=== PATIENT | male | born 1945 | race Caucasian/White ===

== ENCOUNTER 2018-11-13 12:01 | Day surgery (SDC) | payer MEDICARE, BC ==
[2018-11-13] MEDS ORDERED: LIDOCAINE 2% MDV (20MG/ML) 20ML VIAL IV ONE (12:02)
[2018-11-13] MEDS ORDERED: PROPOFOL 10 MG/ML VIAL IV ONE (12:02)
--- NOTE | 2018-11-14 10:00 | Operative Note ---
DATE OF SURGERY: 11/13/2018 OPERATION: COLONOSCOPY with cold snare polypectomy x4. PREOPERATIVE DIAGNOSIS: Colon cancer screening, average risk. POSTOPERATIVE DIAGNOSIS: Redundant colon and polyps. ESTIMATED BLOOD LOSS: Minimum. SPECIMENS: Ascending colon polyps and transverse colon polyps. COMPLICATIONS: None apparent. PREPARATION QUALITY: Good. PROCEDURE: After informed consent was obtained from the patient, he was placed in the left lateral decubitus position in the endoscopy suite, sedated and monitored by the department of anesthesia. Digital rectal exam was unremarkable. A well-lubricated [id number] colonoscope was inserted into the rectum and advanced to the ascending colon. There was 1 sessile polyp approximately 4 mm in diameter removed with a cold snare. Unfortunately, I could not advance the pediatric scope to the cecum despite transabdominal pressure. It was felt the patient's body habitus and colonic redundancy prevented advance to the cecum. As a result, the pediatric colonoscope was removed and a [id number] adult colonoscope inserted into the rectum and advanced to the cecum. Transabdominal pressure was required to intubate the cecal cap. Preparation quality was good. The cecum and ileocecal valve were unremarkable. The ascending colon demonstrated another sessile polyp approximately 6 mm in diameter and was removed in piecemeal fashion with a cold snare. Minimal bleeding was noted. There were two 4-5 mm sessile polyps in the transverse colon each removed with a cold snare. The remainder of the transverse colon, descending colon, sigmoid colon, and rectum were otherwise unremarkable. J-turn views of the anorectum were unrevealing. The endoscope was straightened, the rectal ampulla deflated, and the endoscope was removed. RECOMMENDATIONS: I would suggest the patient undergo repeat exam in 3-5 years pending tissue histology. As always, thank you for allowing me to participate in the healthcare of your patients. CC: DO JESSICA Lo
== END 2018-11-13 13:44 | disposition home or self-care (01) ==
LOC: HOP 12:01
PROVIDERS: ATTEND Internal Medicine Gastroenterology
DX: Z12.11 Encounter for screening for malignant neoplasm of colon (principal); D12.2 Benign neoplasm of ascending colon; D12.3 Benign neoplasm of transverse colon